=== PATIENT | female | born 1965 | race African-American/Black ===

== ENCOUNTER 2020-02-23 08:54 | Emergency (ER) | payer OTHER ==
[~2020-02-23] VITALS: Ht 175.3 cm; Wt 74.4 kg
[2020-02-23] MEDS ORDERED: NEURONTIN300 MG PO (09:03)
[2020-02-23] MEDS ORDERED: KEFLEX500 M1 PO (11:37)
[2020-02-23] MEDS ORDERED: NORCO 5-325 TA1 EAC2 PO (11:37)
[2020-02-23 11:46] VITALS: BP 131/80
== END 2020-02-23 11:46 | disposition home or self-care (01) ==
LOC: ER 08:54
DX: S62.611B Displaced fracture of proximal phalanx of left index finger, initial encounter for open fracture (principal); Z79.899 Other long term (current) drug therapy; W20.8XXA Other cause of strike by thrown, projected or falling object, initial encounter; Y93.89 Activity, other specified; Y92.89 Other specified places as the place of occurrence of the external cause; Y99.8 Other external cause status